=== PATIENT | male | born 1960 | race Caucasian/White ===

== ENCOUNTER → 2016-12-24 | Outpatient (CLI) | payer BC | LOC: KOH-I 13:58 | DX: R10.9 Unspecified abdominal pain (principal); K57.30 Diverticulosis of large intestine without perforation or abscess without bleeding | CPT/HCPCS: 74176 ==

== ENCOUNTER → 2017-02-10 | Outpatient (CLI) | payer BC | LOC: RAD 09:37 | DX: M54.5 Low back pain (principal); M47.896 Other spondylosis, lumbar region | CPT/HCPCS: 72110 ==

== ENCOUNTER 2017-06-09 16:16 | Emergency (ER) | payer BC ==
[2017-06-09 18:35] LABS: HEMOGLOBIN 14.3 gm/dl (14.0-17.5); RED BLOOD COUNT 4.46 M/UL (4.20-5.50); WHITE BLOOD COUNT 7.1 K/UL (4.5-11.0)
[2017-06-09 18:46] LABS: BUN/CREATININE RATIO 20 (0-10)
== END 2017-06-09 20:57 | disposition home or self-care (01) ==
LOC: ER1 16:16
PROVIDERS: Emergency Medicine
DX: R10.84 Generalized abdominal pain (principal); Z87.442 Personal history of urinary calculi; F17.210 Nicotine dependence, cigarettes, uncomplicated
CPT/HCPCS: 36415; 80053; 81001; 82150; 83690; 85025; 85610; 85730; 93005; 96374; 96375; 96376; 99284; J2405; J7030; J7050; Q9962

== ENCOUNTER 2017-06-11 12:15 | Emergency (ER) | payer BC ==
[2017-06-11 14:21] LABS: HEMOGLOBIN 14.7 gm/dl (14.0-17.5); RED BLOOD COUNT 4.62 M/UL (4.20-5.50); WHITE BLOOD COUNT 7.8 K/UL (4.5-11.0)
[2017-06-11 14:49] LABS: BUN/CREATININE RATIO 19 (0-10)
== END 2017-06-11 16:20 | disposition home or self-care (01) ==
LOC: ER1 12:15
PROVIDERS: Family Medicine
DX: K80.50 Calculus of bile duct without cholangitis or cholecystitis without obstruction (principal); F17.200 Nicotine dependence, unspecified, uncomplicated; Z87.442 Personal history of urinary calculi
CPT/HCPCS: 36415; 80053; 81001; 82550; 82553; 83690; 83874; 84484; 85025; 93005; 96374; 96375; 96376; 99284; J2270; J2405; J7030

== ENCOUNTER → 2017-06-12 | Outpatient (CLI) | payer BC | LOC: US 09:30 | DX: R10.11 Right upper quadrant pain (principal) | CPT/HCPCS: 76705 ==